=== PATIENT | male | born 1980 | race Hispanic/Latino ===

== ENCOUNTER 2021-08-14 16:51 | Emergency (ER) | payer OTHER ==
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
[2021-08-14] MEDS ORDERED: KETOROLAC 30 MG/ML INJ ONE (17:34)
[2021-08-14 18:22] VITALS: BP 130/86; TEMP 97.7; O2SAT 92
== END 2021-08-14 17:51 | disposition home or self-care (01) ==
LOC: ER 16:51
DX: S39.012A Strain of muscle, fascia and tendon of lower back, initial encounter (principal); S29.012A Strain of muscle and tendon of back wall of thorax, initial encounter; V49.40XA Driver injured in collision with unspecified motor vehicles in traffic accident, initial encounter
CPT/HCPCS: 96372; 99284

== ENCOUNTER 2022-06-13 10:05 | Emergency (ER) | payer OTHER ==
--- OUTSIDE RECORDS SUMMARY | 2022-06-13 10:07 | XMS REPORT | Continuity of Care Document ---
:1980 Author Organization [facility] t Address [address] [place] [address] [address] [place] [address] Care Team Providers Name Role Phone WIL RODRIGUEZ Primary Care Physician Unavailable WIL RODRIGUEZ Attending Clinician Unavailable Wil Rodriguez MD Attending Clinician WIL RODRIGUEZ Admitting Clinician Unavailable Payers Payer Name Policy Type Policy Number Effective Date Expiration Date S shruthi FLYNN II [id number] 2021 00:00:00 Problems This patient has no known problems. Allergies, Adverse Reactions, Alerts Allergy Allergy Status Severity Reaction(s) Onset Inactive Treating Comm ents Source Name Type Date Date Clinician NO KNOWN Drug Active Univers ALLERGIE Class ity of S [facility] Social History Social Habit Start Date Stop Date Quantity Comments Source Sex Assigned At [birth year] [facility] 00:00:00 00:00:00 Medical Branch Smoking Status Start Date Stop Date Source Tobacco smoking consumption [facility] Branch Medications Ordered Filled Start Stop Current Ordering Indication Dosage Frequency Signature Comments Components Source Medication Medication Date Date Medication? Clinician (SIG) Name Name BENADRYL 2006-06 Yes None Univer s MG ORAL CAP 0-27 Entered ity o f 09:18: [address] Branch PEPCID 2006-06 Yes None Univers COMPLETE 0-27 Entered ity of ORAL 09:18: [address] Procedures This patient has no known procedures. Encounters Start End Encounter Admission Attending Care Care Encounter Source Date/Time Date/Time Type Type Clinicians Facility Department ID 2022-03-01 2022-03-01 Outpatient R [facility] [id number] Univers 11:57:49 23:59:00 WIL Hayward [facility] 2022-03-01 2022-03-01 [facility] [id number] Univers 11:57:49 23:59:00 Encounter Wil hayward [id number] [facility] [id number] [facility] [id number] [facility] 807 Branch Results This patient has no known results.
[2022-06-13 10:43] LABS: Hematocrit 58.1 % (39.6-49.0); Lymphocytes % 14.7 % (15.3-44.8); MCV 88.3 fL (80-100); MPV 8.5 fL (7.6-11.3); RBC Red Blood Cell Count 6.58 M/uL (4.33-5.43)
[2022-06-13] MEDS ORDERED: AZITHROMYCIN 500 MG INJ IVPB ONE (10:44)
[2022-06-13] MEDS ORDERED: NA CHLORIDE 0.9% 250 ML ONE (10:44)
[2022-06-13] MEDS ORDERED: CEFTRIAXONE 2000 MG/VIAL ONE (10:44)
[2022-06-13] MEDS ORDERED: NA CHLORIDE 0.9% 1,000 ML ONE (10:44)
[2022-06-13 11:03] LABS: Albumin 3.2 g/dL (3.4-5.0); Bilirubin Total 0.9 mg/dL (0.2-1.0); Potassium 4.3 mmol/L (3.5-5.1); Troponin High Sensitivity 34.4 pg/mL (<58.9)
[2022-06-13] MEDS ORDERED: KETAMINE HCL 500 MG/5 ML VIAL ONE (11:21)
[2022-06-13] MEDS ORDERED: ROCURONIUM 50 MG/5 ML VIAL IV ONE ×2 (11:22→11:37)
[2022-06-13] MEDS ORDERED: propofoL 1,000 MG/100 ML VIAL IV ONE ×4 (11:24→19:32)
--- NOTE | 2022-06-13 12:22 | RAD REPORT ---
EXAM DESCRIPTION: RAD - Chest Single View - 06/13/2022 12:13 pm CLINICAL HISTORY: DYSPNEA COMPARISON: Chest Pa And Lat (2 Views) dated 12/23/2019 FINDINGS: Endotracheal tube with tip just above the clifton. Enteric tube goes below the diaphragm. N ear complete whiteout of the left lung and right basilar airspace disease. IMPRESSION: 1. Endotracheal tube is right at the level of the clifton. Suggest retracting by 1-2 cm f or a more optimal position. Enteric tube below the diaphragm. 2. Near complete whiteout of the left lung and right basilar airspace disease. The findings could rep resent bilateral consolidative airspace disease with a moderate size left effusion. Aspiration with l obar collapse is also a consideration. A chest CT is pending.
[2022-06-13 13:06] LABS: Arterial Blood Carboxyhemoglob 1.7 % (0-1.5); Blood Gas Oxyhemoglobin 91.3 % (94-97)
[2022-06-13 13:08] LABS: Arterial Blood Carboxyhemoglob 1.4 % (0-1.5); Blood Gas Oxyhemoglobin 95.5 % (94-97); Blood O2 Saturation 98.1 % (92-98.5)
--- NOTE | 2022-06-13 13:55 | RAD REPORT ---
EXAM DESCRIPTION: CT - Chest For Pe Angio - 06/13/2022 1:29 pm CLINICAL HISTORY: dyspnea COMPARISON: Chest Single View dated 06/13/2022 TECHNIQUE: Dynamically enhanced 3 mm thick images of the chest were obtained during administration o f approximately 150mL Isovue 370 IV contrast. Coronal and oblique MIP reconstruction images were gene rated and reviewed. Exam utilizes a protocol to evaluate the pulmonary arterial tree. All CT scans are performed using dose optimization technique as appropriate and may include automated exposure control or mA/KV adjustment according to patient size. FINDINGS: Endotracheal tube is in place with the tip at at the clifton. NG tube is in place extending below the diaphragm, off the field of view. No pulmonary emboli are identified. The aorta as imaged shows no acute or suspicious finding. Cardiomegaly is present without pericardial effusion. Consolidation is present in the mid and lower left lower lobe. More patchy areas consolidation seen i n medial and posterior left apex and in the posterior superior and midportion of the right upper lobe . Interstitial markings are overall prominent. No pleural effusion or pleural thickening. Reactive type mediastinal lymph nodes are present. There is calcification in the middle mediastinum t hat could be old granulomatous disease. A few small calcifications are present in each hilum. No chest wall masses or abnormal axillary lymphadenopathy. IMPRESSION: No pulmonary emboli identified. Bilateral pneumonia pattern most prominent in the left lower lobe. No pleural effusion. Mild cardiomegaly without pericardial effusion. Endotracheal tube tip is at the clifton.
--- NOTE | 2022-06-13 14:21 | ER ---
Nurse's Notes [facility] Name: Maulik Scales Age: 42 yrs Sex: Male : 1980 Arrival Date: 06/13/2022 Time: 10:07 Bed 4 Private MD: Hiro Lisa Diagnosis: Hypercarbic hypoxemic respiratory failure;Unspecified bacterial pneumonia;Severe sepsis without septic shock Presentation: 06/13 10:08 Chief complaint: Patient states: Shortness of breath that began this morning. Pt sent ss over to ED by Dr. Lisa for further evaluation of low O2. Pt's O2 was 54% on RA. Denies fever. Reports chronic cough. Coronavirus screen: Client denies travel out of the [place] in the last 14 days. Client presents with at least one sign or symptom that may indicate coronavirus-19. Ebola Screen: Patient denies exposure to infectious person. Patient denies travel to an Ebola-affected area in the 21 days before illness onset. Initial Sepsis Screen: Does the patient meet any 2 criteria? RR > 20 per min. HR > 90 bpm. Does the patient have a suspected source of infection? No. Patient's initial sepsis screen is negative. Risk Assessment: Do you want to hurt yourself or someone else? Patient reports no desire to harm self or others. Onset of symptoms was June 13, 2022. 10:08 Method Of Arrival: Ambulatory ss 10:08 Acuity: ARIS 1 ss Triage Assessment: 20:12 General: Appears. Respiratory: Onset: The symptoms/episode began/occurred. kd3 20:12 General: Appears uncomfortable. Respiratory: the patient has moderate shortness of kd3 breath. Historical: - Allergies: 10:23 No Known Allergies; ss - Home Meds: 18:31 None [Active]; iw - PMHx: 10:23 Sleep apnea; Asthma; ss - Immunization history:: Client reports having NOT received the Covid vaccine. - Social history:: Smoking status: Patient denies any tobacco usage or history of. - Family history:: not pertinent. Screenin:42 [facility] ED Fall Risk Assessment (Adult) History of falling in the last 3 months, iw including since admission No falls in past 3 months (0 pts). Abuse screen: Denies threats or abuse. Denies injuries from another. Nutritional screening: No deficits noted. Tuberculosis screening: No symptoms or risk factors identified. Assessment: 10:10 General: Appears uncomfortable, Behavior is anxious. Pain: Denies pain. Neuro: Padron mb9 Agitation-Sedation Scale (RASS): 0 - Alert and Calm Level of Consciousness is awake, alert, obeys commands, Oriented to person, place, time, situation, Appropriate for age. Cardiovascular: Heart tones S1 S2 present Capillary refill is > 3 seconds Rhythm is sinus tachycardia. Respiratory: Reports shortness of breath cough that is Airway is patent Respiratory effort is labored, with retractions, using tripod position, Respiratory pattern is tachypnea Breath sounds with wheezes bilaterally. GI: Abdomen is distended, Bowel sounds present X 4 quads. : No signs and/or symptoms were reported regarding the genitourinary system. EENT: No signs and/or symptoms were reported regarding the EENT system. Derm: Skin is intact, Skin is dry, Skin is pale, Skin temperature is cool face is bluish. 10:10 Cardiovascular: nonpitting edema noted to bilateral lower extremities . Rhythm is. mb9 10:15 Reassessment: RT at bedside placing BiPAP. mb9 11:25 Reassessment: pt O2 sat 88% on BiPAP, pt appears lethargic , set up for intubation , RT iw at bedside. 11:42 Reassessment: Dr. López at bedside , RT at bedside, successful intubation attempt iw X 1, pt placed on vent, NGT placed, eagle placed. 12:07 Reassessment: ETT moved back once cm, now 23 at teeth. iw 13:02 Reassessment: Bolus 50 mg propofol given , infusion increased to 20 mcg/kg/min. iw 13:39 Reassessment: pt transported to CT with RT and surgical scrub technologist, on vent, on monitor , pt iw tolerated Ct well. pt back to ER bed4 , oral secretions suctioned, family at bedside , bolus of 30 mg propofol given during CT , rate increases to 40 mcg/kg/min. 14:10 Reassessment: pt appears more relaxed, remains on ventilator, VSS , propofol infusing iw at 45 mcg/kg/min, family at bedside, awaiting CT results , warm blankets placed on pt. 18:41 Reassessment: Patient appears in no apparent distress at this time. pt appears in NAD, iw report called to Erlinda at [facility] , will arrange EMS transport , family updated on POC, in agreement with transfer Patient states symptoms have improved. Vital Signs: 10:11 BP 145 / 88; Pulse 120; Resp 36; Temp 98.6(O); Pulse Ox 54% on R/A; Weight 132.45 kg; ss Height 5 ft. 7 in. (170.18 cm); 11:35 BP 127 / 73; Pulse 105; Resp 24 S; Pulse Ox 88% on BiPAP; iw 12:07 BP 115 / 82; Pulse 101; Resp 17 A; Pulse Ox 93% on ETT ambu; iw 12:30 BP 140 / 94; Pulse 97; Resp 22; Pulse Ox 96% on ETT vent; iw 13:03 BP 119 / 77; Pulse 92; Resp 18; Pulse Ox 96% on ETT vent; iw 14:28 BP 117 / 71; Pulse 85; Resp 17; Pulse Ox 98% on ETT vent; iw 14:45 BP 116 / 67; Pulse 82; Resp 18; Pulse Ox 98% on ETT vent; iw 17:07 BP 115 / 87; Pulse 80; Resp 18 A; Pulse Ox 98% on ETT vent; iw 18:40 BP 122 / 87; Pulse 81; Resp 18; Pulse Ox 96% on ETT vent; iw 20:11 BP 130 / 84; Pulse 86; Pulse Ox 98% on ETT vent; kd3 10:11 Body Mass Index 45.73 (132.45 kg, 170.18 cm) ss ED Course: 10:07 Patient arrived in ED. as 10:07 Hiro Lisa MD is Private Physician. as 10:11 Deidre Cruz RN is Primary Nurse. mb9 10:11 Arm band placed on right wrist. ss 10:19 Jose Elias López MD is Attending Physician. rt 10:23 Triage completed. ss 10:25 Inserted saline lock: 20 gauge in left forearm, using aseptic technique. Blood mb9 collected. 10:39 Troponin High Sensitivity Sent. mb9 10:39 BNP Sent. mb9 10:39 CMP Sent. mb9 10:39 CBC with Diff Sent. mb9 11:00 Blood Culture Adult (2) Sent. mb9 11:00 Troponin High Sensitivity Sent. mb9 11:00 BNP Sent. mb9 11:00 CMP Sent. mb9 11:41 Assisted provider with intubation using 7.5 mm ETT via oral route. ET tube secured at iw 24cm at the teeth. Set up intubation tray. Intubated by Jose Elias López MD Placement verified by CO2 detector w/ + color change, auscultating bilateral breath sounds, Patient tolerated well. 12:15 Chest Single View XRAY In Process Unspecified. EDMS 13:31 CT Chest For PE Angio In Process Unspecified. EDMS 14:20 Alayna Lauren MD is Hospitalizing Provider. rt 14:32 Primary Nurse role handed off by Deidre Cruz, MURRAY iw 14:32 Faye Mclaughlin, MURRAY is Primary Nurse. iw 16:33 initiated a transfer with Leonor Delgado Rn from the [facility] at the eb request of the patient due to our facility not having any ICU beds available. 16:44 per Leonor from the [facility] all [place] [facility] are at ICU eb Capacity. 16:52 initiated transfer with the [facility] transfer Center. eb 17:22 connected the health care marketing specialist fuel verification technician for [facility] with Dr. López for patient eb transfer consultation. 18:18 administrative approval given by Walter Nevarez/ patient has been accepted to On license of [facility] ICU rom [id number]/ Dr. Boaz Velazquez has accepted the patient in transfer/ report to be called to [phone]. 20:12 Patient has correct armband on for positive identification. kd3 20:12 Patient transferred, IV remains in place. kd3 Administered Medications: 10:40 Drug: NS 0.9% 1000 ml Route: IV; Rate: 1000 ml; Site: left forearm; mb9 12:00 Follow up: IV Status: Completed infusion iw 10:45 Drug: Rocephin (cefTRIAXone) 2 grams Route: IV; Rate: calculated rate; Site: left mb9 forearm; 11:30 Follow up: IV Status: Completed infusion iw 10:58 Drug: AZITHromycin 500 mg Route: IVPB; Infused Over: 1 hrs; Site: left antecubital; kr3 12:00 Follow up: IV Status: Completed infusion iw 11:37 Drug: Ketamine 1 mg/kg {Note: administered [address] López .} Route: IVP; iw Site: left forearm; 11:40 Drug: Rocuronium 150 mg Route: IVP; Site: left forearm; iw 12:15 Drug: Propofol 5 mcg/kg/min Route: IV; Rate: calculated rate; Site: left forearm; iw Medication: 14:36 VIS not applicable for this client. iw Ventilator: 12:00 Fi02: 70%; Rate: 18min; T.V.: 520ml; Peep: 10cm; Mode: SIMV; ET tube: 7.5 fr (Oral); iw Outcome: 14:21 Decision to Hospitalize by Provider. rt 18:25 ER care complete, transfer ordered by MD. rt 20:11 Transferred by ground EMS kd3 20:11 Condition: stable 20:11 Discharge instructions given to patient, Instructed on the need for transfer, Demonstrated understanding of instructions, follow-up care. 20:36 Patient left the ED. sb4 Signatures: Dispatcher [employer] EDMS Yi Guzman Irene, RN RN iw Sara Lazar RN RN ss Марина Jean Kyli RN RN kd3 Viki Salgado RN RN kr3 Carrie Shaw, PA-C PA-C sb4 Deidre Cruz RN RN mb9 Jose Elias López MD MD rt Corrections: (The following items were deleted from the chart) 10:18 10:11 BP 145 / 88; Pulse 120bpm; Resp 32bpm; Pulse Ox 54% RA; Temp 98.6F Oral; 132.45 ss kg; Height 5 ft. 7 in.; BMI: 45.7; ss 10:59 10:29 General: Appears uncomfortable, Behavior is cooperative, anxious, mb9 mb9 11:06 10:10 Neuro: Padron Agitation-Sedation Scale (RASS): 0 - Alert and Calm Level of mb9 Consciousness is awake, alert, obeys commands, Oriented to person, place, time, situation, Appropriate for age mb9 14:48 13:39 Reassessment: pt transported to CT with RT and surgical scrub technologist, on vent, on monitor , pt iw tolerated Ct well. pt back to ER bed4 , oral secretions suctioned, family at bedside iw
--- NOTE | 2022-06-13 14:22 | EDPHYS ---
Physician Documentation [facility] Name: Maulik Scales Age: 42 yrs Sex: Male : 1980 Arrival Date: 06/13/2022 Time: 10:07 Bed 4 Private MD: Hiro Lisa ED Physician Jose Elias López HPI: 06/13 12:27 This 42 yrs old Male presents to ER via Ambulatory with complaints of rt Shortness Of Breath. 12:27 The patient has shortness of breath at rest. Onset: The symptoms/episode began/occurred rt 1 week(s) ago. Duration: The symptoms are continuous. The patient's shortness of breath is aggravated by exertion, is alleviated by nothing. Associated signs and symptoms: Pertinent positives: non-productive cough. Severity of symptoms: At their worst the symptoms were severe. Patient presents to the ED with worsening dyspnea, cough for the past week. Became more severe today with labored breathing. Reports a cough, denies other acute complaints at this time. Symptoms are severe in severity, no other aggravating alleviating factors.. Historical: - Allergies: 10:23 No Known Allergies; ss - Home Meds: 18:31 None [Active]; iw - PMHx: 10:23 Sleep apnea; Asthma; ss - Immunization history:: Client reports having NOT received the Covid vaccine. - Social history:: Smoking status: Patient denies any tobacco usage or history of. - Family history:: not pertinent. ROS: 12:27 Constitutional: Negative for fever, chills, and weight loss, Eyes: Negative for injury, rt pain, redness, and discharge, ENT: Negative for injury, pain, and discharge, Neck: Negative for injury, pain, and swelling, Cardiovascular: Negative for chest pain, palpitations, and edema, Abdomen/GI: Negative for abdominal pain, nausea, vomiting, diarrhea, and constipation, MS/Extremity: Negative for injury and deformity, Skin: Negative for injury, rash, and discoloration, Neuro: Negative for headache, weakness, numbness, tingling, and seizure, Psych: Negative for depression, anxiety, suicide ideation, homicidal ideation, and hallucinations. 12:27 Respiratory: Positive for cough, shortness of breath. Exam: 12:27 Head/Face: Normocephalic, atraumatic. Eyes: Pupils equal round and reactive to light, rt extra-ocular motions intact. Lids and lashes normal. Conjunctiva and sclera are non-icteric and not injected. Cornea within normal limits. Periorbital areas with no swelling, redness, or edema. ENT: Nares patent. No nasal discharge, no septal abnormalities noted. Tympanic membranes are normal and external auditory canals are clear. Oropharynx with no redness, swelling, or masses, exudates, or evidence of obstruction, uvula midline. Mucous membranes moist. Neck: Trachea midline, no thyromegaly or masses palpated, and no cervical lymphadenopathy. Supple, full range of motion without nuchal rigidity, or vertebral point tenderness. No Meningismus. Chest/axilla: Normal chest wall appearance and motion. Nontender with no deformity. No lesions are appreciated. Cardiovascular: Regular rate and rhythm with a normal S1 and S2. No gallops, murmurs, or rubs. Normal PMI, no JVD. No pulse deficits. Abdomen/GI: Soft, non-tender, with normal bowel sounds. No distension or tympany. No guarding or rebound. No evidence of tenderness throughout. Back: No spinal tenderness. No costovertebral tenderness. Full range of motion. Skin: Warm, dry with normal turgor. Normal color with no rashes, no lesions, and no evidence of cellulitis. MS/ Extremity: Pulses equal, no cyanosis. Neurovascular intact. Full, normal range of motion. Neuro: Awake and alert, GCS 15, oriented to person, place, time, and situation. Cranial nerves II-XII grossly intact. Motor strength 5/5 in all extremities. Sensory grossly intact. Cerebellar exam normal. Normal gait. Psych: Awake, alert, with orientation to person, place and time. Behavior, mood, and affect are within normal limits. 12:27 Constitutional: The patient appears Acute respiratory distress, awake, drowsy 12:27 Respiratory: Diminished breath sounds bilaterally with labored respirations. 12:27 ECG was reviewed by the Attending Physician. rt Vital Signs: 10:11 BP 145 / 88; Pulse 120; Resp 36; Temp 98.6(O); Pulse Ox 54% on R/A; Weight 132.45 kg; ss Height 5 ft. 7 in. (170.18 cm); 11:35 BP 127 / 73; Pulse 105; Resp 24 S; Pulse Ox 88% on BiPAP; iw 12:07 BP 115 / 82; Pulse 101; Resp 17 A; Pulse Ox 93% on ETT ambu; iw 12:30 BP 140 / 94; Pulse 97; Resp 22; Pulse Ox 96% on ETT vent; iw 13:03 BP 119 / 77; Pulse 92; Resp 18; Pulse Ox 96% on ETT vent; iw 14:28 BP 117 / 71; Pulse 85; Resp 17; Pulse Ox 98% on ETT vent; iw 14:45 BP 116 / 67; Pulse 82; Resp 18; Pulse Ox 98% on ETT vent; iw 17:07 BP 115 / 87; Pulse 80; Resp 18 A; Pulse Ox 98% on ETT vent; iw 18:40 BP 122 / 87; Pulse 81; Resp 18; Pulse Ox 96% on ETT vent; iw 20:11 BP 130 / 84; Pulse 86; Pulse Ox 98% on ETT vent; kd3 10:11 Body Mass Index 45.73 (132.45 kg, 170.18 cm) ss Ventilator: 12:00 Fi02: 70%; Rate: 18min; T.V.: 520ml; Peep: 10cm; Mode: SIMV; ET tube: 7.5 fr (Oral); iw Procedures: 12:27 Intubation: Intubated orally using curved glidescope with 7.5 mm ETT. was successful on rt first attempt. Ventilated with ventilator. Tube secured with ETT townsend measured 24 cm at lip. Placement verified by CXR, CO2 detector with (+) color change, Patient tolerated well. MDM: 10:38 Patient medically screened. rt 14:22 Differential diagnosis: Anemia Anxiety Reaction CHF exacerbation, Chronic Obstructive rt Pulmonary Disease Myocardial Infarction pneumonia, Pneumothorax pulmonary edema, Pulmonary Embolism Sepsis. Data reviewed: vital signs, nurses notes. 06/13 10:31 Order name: CBC with Diff; Complete Time: 10:55 rt 06/13 10:31 Order name: CMP; Complete Time: 11:10 rt 06/13 10:31 Order name: Lactate w/ 2H reflex if indic.; Complete Time: 11:10 rt 06/13 10:31 Order name: Blood Culture Adult (2) rt 06/13 10:31 Order name: Troponin High Sensitivity; Complete Time: 11:10 rt 06/13 10:31 Order name: BNP; Complete Time: 11:10 rt 06/13 11:56 Order name: COVID-19/FLU A+B; Complete Time: 17:22 eb 06/13 13:07 Order name: ABG Arterial Blood Gas EDMS 06/13 13:10 Order name: ABG Arterial Blood Gas; Complete Time: 13:13 EDMS 06/13 14:28 Order name: Basic Metabolic Panel; Complete Time: 17:22 EDMS 06/13 14:28 Order name: CBC with Automated Diff; Complete Time: 17:22 EDMS 06/13 14:28 Order name: Magnesium; Complete Time: 17:22 EDMS 06/13 14:28 Order name: Phosphorus; Complete Time: 17:22 EDMS 06/13 16:40 Order name: ABG Arterial Blood Gas; Complete Time: 17:22 EDMS 06/13 10:31 Order name: Chest Single View XRAY; Complete Time: 13:13 rt 06/13 10:31 Order name: CT Chest For PE Angio; Complete Time: 14:10 rt 06/13 10:31 Order name: BIPAP rt 06/13 10:38 Order name: IV - Large Bore; Complete Time: 10:39 mb9 06/13 11:27 Order name: EKG; Complete Time: 11:28 rt 06/13 11:27 Order name: EKG - Nurse/Tech; Complete Time: 12:18 rt 06/13 14:28 Order name: NPO EDMS EC: Rate is 107 beats/min. Rhythm is regular, Sinus tachycardia with No ectopy. FL interval rt is normal. QRS interval is normal. Clinical impression: NSR w/ Non-specific ST/T Changes. Administered Medications: 10:40 Drug: NS 0.9% 1000 ml Route: IV; Rate: 1000 ml; Site: left forearm; mb9 12:00 Follow up: IV Status: Completed infusion iw 10:45 Drug: Rocephin (cefTRIAXone) 2 grams Route: IV; Rate: calculated rate; Site: left mb9 forearm; 11:30 Follow up: IV Status: Completed infusion iw 10:58 Drug: AZITHromycin 500 mg Route: IVPB; Infused Over: 1 hrs; Site: left antecubital; kr3 12:00 Follow up: IV Status: Completed infusion iw 11:37 Drug: Ketamine 1 mg/kg {Note: administered [address] López .} Route: IVP; iw Site: left forearm; 11:40 Drug: Rocuronium 150 mg Route: IVP; Site: left forearm; iw 12:15 Drug: Propofol 5 mcg/kg/min Route: IV; Rate: calculated rate; Site: left forearm; iw Disposition: 14:22 Critical Care:. rt Disposition Summary: 06/13/22 18:25 Transfer Ordered Transfer Location: [facility] rt Reason: Capacity rt Condition: Critical(06/13/22 18:25) rt Problem: new(06/13/22 18:25) rt Symptoms: have improved(06/13/22 18:25) rt Accepting Physician: Dr. Boaz Velazquez [facility] Marcelo(06/13/22 20:36) sb4 Diagnosis - Hypercarbic hypoxemic respiratory failure rt - Unspecified bacterial pneumonia rt - Severe sepsis without septic shock rt Forms: - Medication Reconciliation Form rt - SBAR form rt Critical care time excluding procedures: 14:22 Critical care time: Bedside Care: 40 minutes, Consultation: 10 minutes. Total time: 50 rt minutes Signatures: Dispatcher [employer] Faye Celis, RN RN Sara Lazar RN RN ss Марина Jean Kelley, RN RN kr3 Carrie Shaw PA-C PAAubrie [email or web address] Deidre Cruz RN RN mb9 Jose Elias López MD MD rt Corrections: (The following items were deleted from the chart) 18:23 14:21 Inpatient Admission rt rt 18:23 14:21 Alayna Lauren rt rt 18:23 14:21 Intensive Care Unit rt rt 18:23 14:21 Critical rt rt 18:23 14:21 new rt rt 18:23 14:21 have improved rt rt 18:23 14:21 Standard rt rt 18:23 14:21 rt rt 18:23 14:21 Acute respiratory failure with hypoxia and hypercapnea rt rt 18:23 14:21 Other pneumonia, unspecified organism rt rt 18:26 18:25 Dr. guy eb 20:36 18:26 Dr. Boaz Velazquez [facility] Marcelo eb sb4
[2022-06-13] MEDS ORDERED: ALBUTEROL 2.5 MG/3 ML NEB SOL NEB PRN (14:23)
[2022-06-13 14:52] LABS: SARS-COV-2 RT PCR NEGATIVE (NEGATIVE)
[2022-06-13] MEDS ORDERED: IPRATROPIUM BROM 0.5MG/2.5ML NEB SCH (16:00)
[2022-06-13 16:17] LABS: Magnesium 1.9 mg/dL (1.6-2.4); Phosphorus 3.8 mg/dL (2.5-4.9); Potassium 4.7 mmol/L (3.5-5.1)
[2022-06-13 16:39] LABS: Arterial Blood Carboxyhemoglob 1.6 % (0-1.5); Blood Gas Oxyhemoglobin 94.7 % (94-97); Blood O2 Saturation 97.5 % (92-98.5)
[2022-06-13 16:46] LABS: Hematocrit 55.6 % (39.6-49.0); Lymphocytes % 14.9 % (15.3-44.8); MCV 86.7 fL (80-100); MPV 8.9 fL (7.6-11.3); RBC Red Blood Cell Count 6.41 M/uL (4.33-5.43)
[2022-06-13] MEDS ORDERED: VANCOMYCIN 3 GM in NA CHLORIDE 0.9% 500 ML IVPB SCH (17:00)
[2022-06-13 20:40] VITALS: TEMP 98.6
[2022-06-13 20:50] VITALS: BP 130/84; O2SAT 98
[2022-06-13] MEDS ORDERED: CEFEPIME 2 GM in NA CHLORIDE 0.9% 100 ML IV SCH (21:00)
[2022-06-14] MEDS ORDERED: VANCOMYCIN 2 GM in NA CHLORIDE 0.9% 500 ML IVPB SCH (05:00)
--- NOTE | 2022-06-14 17:46 | EKG ---
Test Date: 2022-06-13 Test Time: 11:59:10 Flaker Tender: FLAVIO MEASUREMENT RESULTS: Intervals: Rate: 107 TN: 132 QRSD: 88 QT: 310 QTc: 413 [place]: P: 47 TN: 132 QRS: 91 T: 37 INTERPRETIVE STATEMENTS: Sinus tachycardia Rightward axis Borderline ECG No previous ECG available for comparison Electronically Signed On 06-14-22 17:44:17 DRINKING WATER TECHNICIAN by Wilman Francisco
== END 2022-06-13 20:36 | disposition short-term general hospital (02) ==
LOC: ER 10:05 → UNDOADMIN 14:22 → ERHOLD 14:22 → ER 20:36
DX: J96.92 Respiratory failure, unspecified with hypercapnia (principal); J15.9 Unspecified bacterial pneumonia; R65.20 Severe sepsis without septic shock; Z20.822 Contact with and (suspected) exposure to COVID-19
CPT/HCPCS: 87040 ×2; 85025 ×2; 80048; 36415; 83735; 84100; 83605; 84484; 80053; 83880; 0240U; 71275; 71045; 94002; 82805 ×3; 94660 ×2; Q9967; J2704 ×4; J0456; J3370; J7050; J7040; J7030; J0696; 93005